=== PATIENT | male | born 1990 | race Caucasian/White ===

== ENCOUNTER 2017-09-04 07:53 | Emergency (ER) | payer BC, MEDICAID ==
[2017-09-04 08:05] VITALS: BP 97/64
--- NOTE | 2017-09-04 08:18 | UC ---
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 hx pituitary tumor panhypopit hx aplastic anemia hx epistaxis hx nasal cautery x 1 - History of Current Complaint Chief Complaint: UCGeneralIllness Stated Complaint: NOSE BLEED Time Seen by Provider: 09/04/17 07:58 Hx Obtained From: Patient Onset/Duration: Sudden Onset, Lasting Minutes - 40 Timing: Constant Severity Initially: Moderate Severity Currently: None Pain Intensity: 0 Pain Scale Used: 0-10 Numeric Character: Light Alleviating Factor(s): Pressure Associated Signs And Symptoms: Positive: Negative - Allergies/Home Medications Allergies/Adverse Reactions: Allergies Allergy/AdvReac Type Severity Reaction Status Date / Time No Known Allergies Allergy Verified 11/20/15 15:25 PMH/Surg Hx/FS Hx/Imm Hx Previously Healthy: Yes - Surgical History Surgical History: Yes Surgery Procedure, Year, and Place: Tonsillectomy as child. Pituitary tumor biopsy. Nasal surgery- deviated septum - Family History Known Family History: Negative: Blood Disorder Family History: R & N/C - Social History Alcohol Use: Rare Substance Use Type: None Smoking Status (MU): Never Smoked Tobacco Review of Systems Constitutional: Negative Skin: Negative Eyes: Negative ENT: Epistaxis Respiratory: Negative Cardiovascular: Negative Gastrointestinal: Negative Genitourinary: Negative Motor: Negative Neurovascular: Negative Musculoskeletal: Negative Neurological: Negative Psychological: Negative Is Patient Immunocompromised?: No All Other Systems Reviewed And Are Negative: Yes Physical Exam Triage Information Reviewed: Yes Appearance: Well-Appearing, No Pain Distress, Well-Nourished Vital Signs: Initial Vital Signs Temp 97.2 F 09/04/17 07:58 Pulse 86 09/04/17 07:58 Resp 18 09/04/17 07:58 BP 97/64 09/04/17 07:58 Pulse Ox 100 09/04/17 07:58 Vital Signs Reviewed: Yes Eyes: Positive: Conjunctiva Clear ENT: Positive: Hearing grossly normal, Pharynx normal, TMs normal, Other - small clot right nostril no active bleeding. Negative: Tonsillar swelling, Tonsillar exudate, Trismus, Muffled voice, Hoarse voice, Dental tenderness, Sinus tenderness, Uvula midline Neck: Positive: Supple, Nontender Respiratory: Positive: Lungs clear, Normal breath sounds, No respiratory distress, No accessory muscle use Cardiovascular: Positive: RRR, No Murmur Musculoskeletal: Positive: ROM Intact, No Edema Neurological Exam: Normal Neurological: Positive: Alert Psychological Exam: Normal Skin Exam: Normal Epistaxis Nasal Course/Dx - Course Course Of Treatment: It was stopped but rebleed during my exam. No obious source noted. stopped after about 10 minutes (after neosynephrine use) - Differential Dx/Diagnosis Provider Diagnoses: epistaxis Discharge - Discharge Plan Condition: Stable Disposition: HOME Patient Education Materials: Nosebleed (ED) Forms: *Work Release Referrals: Lisa Garcia MD [Primary Care Provider] - If Needed Additional Instructions: if this recurs I suggest you contact your ENT
[2017-09-04] MEDS ORDERED: Phenylephrine 1% NASAL* 15 ML BOT BOTH NARES ONE (08:46)
[2017-09-04] MEDS ORDERED: Phenylephrine 1% NASAL* 15 ML BOT ONE (08:47)
== END 2017-09-04 09:32 | disposition home or self-care (01) ==
LOC: UCEAST 07:53
DX: R04.0 Epistaxis (principal)
CPT/HCPCS: 36415; 99212; A9270-GY; G0463

== ENCOUNTER 2019-07-04 21:25 | Emergency (ER) | payer BC ==
--- OUTSIDE RECORDS SUMMARY | 2019-07-04 21:32 | XMS REPORT | Continuity of Care Document ---
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 Anemia Zonia Larsen NP Onset: 09/12/2018 Social History Type Date Description Comments Sex Unknown Tobacco Use Start: Unknown Never Smoked Cigarettes ETOH Use Occasional 0-1 drink per week Recreational Drug Use Never Used Drugs Tobacco Use Start: Unknown Nonsmoker Smoking Status Reviewed: 06/06/19 Nonsmoker Exercise Type/Frequency Exercises rarely Allergies, Adverse Reactions, Alerts Description No Known Drug Allergies Medications Active Medications SIG Qnty Indications Ordering Date Provider Ativan 1-2 by mouth before 10tabs Zonia Chavez 06/06/2019 0.5mg Tablets MRIs as needed for RICHARD Larsen anxiety Hydrocortisone one po q Afternoon 90tabs Branden Stockton 02/20/2019 5mg MD Jayshree Tablets Levothyroxine Sodium one by mouth every 90tabs Branden Stockton 01/29/2019 morning MD Jayshree 175mcg Tablets Ddavp 3 sprays into 10ml Branden Stockton 12/09/2018 0.01% Solution nostril twice daily. MD Jayshree Wellbutrin SR one tab by mouth 90tabs Branden Stockton 12/01/2018 100mg daily MD Jayshree Tablets ER 12HR Sertraline HCL 1 by mouth every day 90tabs F34.1 Branden Stockton 10/22/2018 50mg MD Jayshree Tablets Depo-Testosterone 200 mg intramuscular 2ml E29.1 Lenora Arguello, 10/22/2018 every 14 days M.D. 200mg/ml Solution Hydrocortisone 1 PO qd Unknown 10mg Tablets Ibuprofen 2 every 4 hours as Unknown 200mg Tablets needed History Medications Amoxicillin 1 tablet twice a 14tabs J02.9 Agus Virk, 01/20/2019 - 875mg day for 7 days. M.D. 06/06/2019 Tablets Medications Administered in Office Medication SIG Qnty Indications Ordering Provider Date Injection Subcutaneous Or Branden Martell MD 05/27/2019 Intramuscular Injection Injection Subcutaneous Or Branden Martell MD 05/06/2019 Intramuscular Injection Injection Subcutaneous Or Branden Martell MD 04/22/2019 Intramuscular Injection Injection Subcutaneous Or Branden Martell MD 03/25/2019 Intramuscular Injection Injection Subcutaneous Or Branden Martell MD 03/11/2019 Intramuscular Injection Injection Subcutaneous Or Branden Martell MD 02/25/2019 Intramuscular Injection Injection Subcutaneous Or Ava Reyes, [employer] 02/11/2019 Intramuscular Injection Injection Subcutaneous Or Avanaseem Reyes, [employer] 01/28/2019 Intramuscular Injection Injection Subcutaneous Or Ava Amy, [employer] 01/14/2019 Intramuscular Injection Injection Subcutaneous Or Avanaseem Reyes, [employer] 2018 Intramuscular Injection Injection Subcutaneous Or Avanaseem Reyes, [employer] SAL[employer]ANT 12/17/2018 Intramuscular Injection Injection Subcutaneous Or Ava Reyes, [employer]ANT 12/08/2018 Intramuscular Injection Injection Subcutaneous Or Branden Martell MD 11/19/2018 Intramuscular Injection Injection Subcutaneous Or Branden Martell MD 11/05/2018 Intramuscular Injection Injection Subcutaneous Or Branden Martell MD 10/23/2018 Intramuscular Injection Injection Subcutaneous Or Branden Martell MD 10/08/2018 Intramuscular Injection Injection Subcutaneous Or LORRAINE Abdullahi 09/24/2018 Intramuscular Injection Immunizations CPT Code Status Date Vaccine Lot # [id number] Given 10/13/2018 Tdap Tetanus, W Pertussis [id number] 53688 Given 06/08/1998 (IPV) Inactive Poliovirus Vaccine 69635 Given 06/08/1998 MMR Virus Immunization 54852 Given 06/08/1998 DTaP Immunization 01699 Given 01/13/1997 (IPV) Inactive Poliovirus Vaccine 09806 Given 02/07/1994 Hepatitis B Immunization, -19 Years 01184 Given 02/07/1994 MMR Virus Immunization 56491 Given 02/07/1994 DTaP Immunization 88014 Given 07/19/1993 Hepatitis B Immunization, -19 Years 96675 Given 07/19/1993 DTaP Immunization 53378 Given 05/17/1993 Hepatitis B Immunization, [place]-19 Years 54214 Given 05/17/1993 (IPV) Inactive Poliovirus Vaccine 41563 Given 05/17/1993 DTaP Immunization 57034 Given 03/15/1993 (IPV) Inactive Poliovirus Vaccine 13220 Given 03/15/1993 DTaP Immunization Vital Signs Date Vital Result Comment 06/06/2019 9:29am BP Systolic 102 mmHg BP Diastolic 68 mmHg Heart Rate 68 /min Body Temperature 97.2 F Respiratory Rate 16 /min Weight 193.00 lb 01/20/2019 8:31am BP Systolic 112 mmHg BP Diastolic 74 mmHg Heart Rate 96 /min Body Temperature 97.9 F Height 67.5 inches 5'7.50" Results Test Date Facility Test Result H/L Range Note Comp Metabolic Panel 02/20/2019 [facility] Sodium 136 mmol/L Normal 135-145 Potassium 3.9 mmol/L Normal 3.5-5.0 Chloride 102 mmol/L Normal 101-111 Co2 Carbon Dioxide 26 mmol/L Normal 22-32 Anion Gap 8 mmol/L Normal 2-11 Glucose 101 mg/dL High 70-100 Blood Urea Nitrogen 7 mg/dL Normal 6-24 Creatinine 0.94 mg/dL Normal 0.67-1.17 BUN/Creatinine Ratio 7.4 Low 8-20 Calcium 9.3 mg/dL Normal 8.6-10.3 Total Protein 7.5 g/dL Normal 6.4-8.9 Albumin 4.4 g/dL Normal 3.2-5.2 Globulin 3.1 g/dL Normal 2-4 Albumin/Globulin Ratio 1.4 Normal 1-3 Total Bilirubin 0.90 mg/dL Normal 0.2-1.0 Alkaline Phosphatase 169 U/L High 34-104 Alt 46 U/L Normal 7-52 Ast 69 U/L High 13-39 Egfr Non- 97.0 >60 Egfr 117.4 >60 1 Lipid Profile (Trig/Chol/HDL) 02/20/2019 [facility] Triglycerides 393 mg/dL 2 Cholesterol 253 mg/dL 3 HDL Cholesterol 26.1 mg/dL 4 LDL Cholesterol 148 mg/dL 5 Laboratory test 02/20/2019 [facility] Testosterone Total 1090.80 ng/dL High 240- 950 finding Free T4 (Free Thyroxine) 0.97 ng/dL Normal 0.61-1.12 Prolactin 31.6 ng/mL High 1.0-20.0 Estradiol 89 pg/mL High Less Than 50 6 CBC Auto Diff 02/20/2019 [facility] White Blood Count 5.9 10^3/uL Normal 3.5- 10.8 Red Blood Count 4.33 10^6/uL Normal 4.18-5.48 Hemoglobin 14.3 g/dL Normal 14.0-18.0 Hematocrit 41 % Low 42-52 Mean Corpuscular Volume 95 fL High 80-94 Mean Corpuscular Hemoglobin 33 pg High 27-31 Mean Corpuscular HGB Conc 35 g/dL Normal 31-36 Red Cell Distribution Width 15 % Normal 10.5-15 Platelet Count 86 10^3/uL Low 150-450 Mean Platelet Volume 8.5 fL Normal 7.4-10.4 Abs Neutrophils 3.7 10^3/uL Normal 1.5-7.7 Abs Lymphocytes 1.5 10^3/uL Normal 1.0-4.8 Abs Monocytes 0.4 10^3/uL Normal 0-0.8 Abs Eosinophils 0.1 10^3/uL Normal 0-0.6 Abs Basophils 0.2 10^3/uL Normal 0-0.2 Abs Nucleated RBC 0.0 10^3/uL Granulocyte % 61.8 % Lymphocyte % 25.1 % Monocyte % 7.3 % Eosinophil % 2.0 % Basophil % 3.8 % Nucleated Red Blood Cells % 0.1 Laboratory test finding 02/20/2019 [facility] Osmolality Urine 596 mOsm/kg Normal 100-1150 Hemoglobin A1c (Glyco HGB) 4.8 % Normal 4.0-5.6 7 Growth Hormone 0.02 ng/mL 8 Sex Hormone Binding Globulin 34 nmol/L 10-57 9 Insulin-Like Growth 02/20/2019 [facility] Insulin like Growth 20 ng/mL Abnormal 60-329 Factor 1 Factor I Igf1 Z-score -3.00 SD 10 Comprehensive Metabolic 01/20/2019 [facility](fma) Sodium 135 mEq/L 134-149 Prof Potassium 3.6 mEq/L 3.6-5.5 Chloride 98 mEq/L 94-112 Carbon Dioxide 24 mEq/L 21-32 Glucose 105 mg/dL 70-105 BUN 4 mg/dL Low 6-26 11 Creatinine 1.0 mg/dL 0.6-1.4 BUN/Creat Ratio 4.0 CALC Low 8.0-36.0 Calcium 8.6 mg/dL 8.6-10.2 Total Protein 7.4 g/dL 6.4-8.3 Albumin 4.4 g/dL 3.8-5.5 Globulin 3.0 g/dL 2.0-4.8 A/G Ratio 1.5 CALC 0.6-2.3 Alk. Phosphatase 135 U/L High 22-95 12 Alt (SGPT) 19 U/L 7-35 Ast (Sgot) 48 U/L High 5-34 13 Total Bilirubin 1.3 mg/dL 0.2-1.3 GFR Non- >60 ml/min/1.73m^ >=60 GFR >60 ml/min/1.73m^ >=60 Laboratory test 01/20/2019 [facility](a) TSH 8.35 mIU/L High 0.50- 6.00 finding Free T4 0.27 ng/dL Low 0.75-1.54 Laboratory test 01/20/2019 [facility] Cortisol - Am 1.8 g/dL Low 6.2-19.4 14 finding [address] [place] [address] (607)- - Testosterone, 01/20/2019 [facility] Testosterone, >1500 ng/dL High 264-916 15 Free And Total [address] [facility] [place] [address] (607)- - Free Testosterone(Direct) 34.7 pg/mL High 9.3-26.5 Laboratory test finding 01/20/2019 [facility] Quickstrep neg Negative (607)- - Flu A&B (Fma) 01/06/2019 [facility] Medicine Influenza A negative (607)- - Influenza B negative 1 Because ethnic data is not always readily available, this report includes an eGFR for both -Americans and non- Americans. The National Kidney Disease Education Program (NKDEP) does not endorse the use of the MDRD equation for patients that are not between the ages of 18 and 70, are , have extremes of body size, muscle mass, or nutritional status, or are non- or non-. According to the National Kidney Foundation, irrespective of diagnosis, the stage of the disease is based on the level of kidney function: Stage Description GFR(mL/min/1.73 m(2)) 1 Kidney damage with normal or decreased GFR 90 2 Kidney damage with mild decrease in GFR 60-89 3 Moderate decrease in GFR 30-59 4 Severe decrease in GFR 15-29 5 Kidney failure <15 (or dialysis) 2 Desirable: <150 Borderline High: 150-199 High: 200-499 Very High: >500 3 Desirable: <200 Borderline High: 200-239 High: >239 4 Low: <40 Desirable: 40-60 High: >60 5 Desirable: <100 Near Optimal: 100-129 Borderline High: 130-159 High: 160-189 Very High: >189 6 Estradiols <40 pg/mL are sent to a reference lab for low range testing. 7 Therapeutic target for the treatment of diabetes mellitus patients is <7% HBA1C, and in selective patients <6.0%. Please refer to [place] [employer] diabetic care guidelines for further information. 8 REFERENCE VALUE 0.01 - 0.97 Test Performed by: [facility] [place] [address] 9 Test Performed by: [facility] [place] [address] 10 REFERENCE VALUE -2.0 - +2.0 ADDITIONAL INFORMATION This test was developed and its performance characteristics determined by [facility] in a manner consistent with CLIA requirements. This test has not been cleared or approved by the U.S. Food and Drug Administration. Test Performed by: [facility] [address] [place] [address] 11 RESULTS VERIFIED BY REPEAT ANALYSIS 12 RESULTS VERIFIED BY REPEAT ANALYSIS 13 RESULTS VERIFIED BY REPEAT ANALYSIS 14 1 serum pour off from red top tube 15 Adult male reference interval is based on a population of healthy nonobese males (BMI <30) between 19 and 39 years old. Heather et.al. JCEM 2017,102;8237-9100. PMID: 53588965. Procedures Date Code Description Status 05/27/2019 98049 Injection Subcutaneous Or Intramuscular Completed 05/06/2019 62296 Injection Subcutaneous Or Intramuscular Completed 04/22/2019 28158 Injection Subcutaneous Or Intramuscular Completed 03/25/2019 65609 Injection Subcutaneous Or Intramuscular Completed 03/11/2019 60428 Injection Subcutaneous Or Intramuscular Completed 02/25/2019 77345 Injection Subcutaneous Or Intramuscular Completed 02/11/2019 37451 Injection Subcutaneous Or Intramuscular Completed 01/28/2019 15334 Injection Subcutaneous Or Intramuscular Completed 01/14/2019 70165 Injection Subcutaneous Or Intramuscular Completed 2018 86901 Injection Subcutaneous Or Intramuscular Completed 12/17/2018 58831 Injection Subcutaneous Or Intramuscular Completed 12/08/2018 79482 Injection Subcutaneous Or Intramuscular Completed Medical Devices Description No Information Available Encounters Type Date Location Provider Dx Diagnosis Office Visit 01/20/2019 [facility] Office Elizabeth Garrett, J02.9 Acute pharyngitis, 8:45a PA unspecified Office Visit 01/19/2019 [facility] Office Branden Stockton E23.0 Hypopituitarism 2:00p MD Jayshree Office Visit 01/14/2019 [facility] Office Ava E29.1 Testicular 10:30a LORRAINE Reyes hypofunction Assessments Date Code Description Provider 06/06/2019 F40.240 Claustrophobia Zonia Larsen NP 05/27/2019 E29.1 Testicular hypofunction Branden Martell MD 05/06/2019 E29.1 Testicular hypofunction Branden Martell MD 04/22/2019 E29.1 Testicular hypofunction Branden Martell MD 03/25/2019 E29.1 Testicular hypofunction Branden Martell MD 03/11/2019 E29.1 Testicular hypofunction Branden Martell MD 02/25/2019 E29.1 Testicular hypofunction Branden Martell MD 02/11/2019 E29.1 Testicular hypofunction Ava Reyes, [employer] 01/28/2019 E29.1 Testicular hypofunction Ava Reyes, [employer] 01/20/2019 J02.9 Acute pharyngitis, unspecified [facility] 01/20/2019 E23.0 Hypopituitarism Branden Martell MD 01/19/2019 E23.0 Hypopituitarism Branden Martell MD 01/14/2019 E29.1 Testicular hypofunction Ava Reyes, [facility] 01/06/2019 J06.9 Acute upper respiratory infection, Branden Forman M.D. unspecified 2018 E29.1 Testicular hypofunction Avanaseem Reyes, [facility] 12/17/2018 E29.1 Testicular hypofunction Avanaseem Reyes, [facility] 12/08/2018 E29.1 Testicular hypofunction Ava Reyes, [employer] Plan of Treatment 06/06/2019 - Zonia Larsen, NPF40.240 ClaustrophobiaComments:Ativan PRN pre -procedure have someone drive you to and from the MRIs no drinking alcohol with this medication it is controlled - please place in secure locationAllNew Medication:Ativan 0.5 mg - 1-2 by mouth before MRIs as needed for anxietyComments:Medication Management Patient Understands medications he 's taking? Yes No Are there Barriers to Adherence? Yes No Has the patient been asked about herbal supplements and therapies, andOTC meds? Yes No Care Plan1. Patient has been queried about patient's goals/ preferences and functional/lifestyle goals at relevant visits. If relevant, describe: na2. Treatment goals as explained to the patient: above3. Are there barriers to meeting treatment goals? Yes No If Yes, please describe:4. Self-Management goals as described to the patient: Yes NoAs always, we strongly encourage a healthy diet and making physical activity a part of your every day life. If you have questions about how or where to start, please contact the office. Functional Status Description No Information Available Mental Status Description No Information Available Referrals Refer to Reason for Referral Status Appt Date Brent Ugarte MD consult and treat Scheduled 02/20/2019 [facility] Endocrinology [address] [facility] [address] [facility] [address] [phone]
[2019-07-04 21:37] VITALS: BP 123/75
[2019-07-04] MEDS ORDERED: HYDROcodone/ACETAMIN 5-325 MG* 1 TAB PO ONE ×2 (21:53→21:55)
[2019-07-04] MEDS ORDERED: Amoxicillin/Clavulanate TAB* 875 MG PO ONE ×2 (21:54→21:55)
--- NOTE | 2019-07-04 22:01 | UC ---
UC General HPI - HPI Summary HPI Summary: 28-year-old male comes in with acute onset of left-sided jaw pain. Pain started couple hours ago in the left lateral lower jaw. Is pains been reoccurring on and off for the past month. Usually takes 200 mg of ibuprofen the pain goes away. Tonight the pain is not going away after taking a total of 800 mg of ibuprofen. Pain is a 7 out of 10. He did try some Orajel which he feels did not help and he does not think it's his tooth giving him pain. Denies any ear pain no fevers no chills no complaint of difficulty swallowing. Pain is in the jaw. Denies any chest pain. No complaint of other headache. - History of Current Complaint Chief Complaint: UCGeneralIllness Stated Complaint: JAW PAIN/LANG Time Seen by Provider: 07/04/19 21:43 Pain Intensity: 7 - Allergy/Home Medications Allergies/Adverse Reactions: Allergies Allergy/AdvReac Type Severity Reaction Status Date / Time No Known Allergies Allergy Verified 07/04/19 21:37 Home Medications: Home Medications Desmopressin (Nonrefrigerated) [Desmopressin 10 Mcg/0.1 ml Spr] 10 mcg NS DAILY 07/04/19 [History Confirmed 07/04/19] Hydrocortisone TAB* [Cortef*] 5 mg PO DAILY 07/04/19 [History Confirmed 07/04/19 ] Ibuprofen TAB* [Motrin TAB* 800 MG] 800 mg PO ONCE 07/04/19 [History Confirmed 07/04/19] Levothyroxine TAB* [Synthroid TAB*] 100 mcg PO DAILY 07/04/19 [History Confirmed 07/04/19] Sertraline* [Zoloft*] 50 mg PO DAILY 07/04/19 [History Confirmed 07/04/19] Testosterone Cypionate 100 mg IM MONTHLY 07/04/19 [History Confirmed 07/04/19] buPROPion TAB* [Wellbutrin TAB*] 100 mg PO DAILY 07/04/19 [History Confirmed ] PMH/Surg Hx/FS Hx/Imm Hx Previously Healthy: Yes - BRAIN TUMOR Endocrine History: Hypothyroidism - Surgical History Surgical History: Yes Surgery Procedure, Year, and Place: Tonsillectomy as child. Pituitary tumor biopsy. Nasal surgery- deviated septum - Family History Known Family History: Positive: None, Unknown Negative: Blood Disorder Family History: R & N/C - Social History Alcohol Use: Rare Substance Use Type: None Smoking Status (MU): Never Smoked Tobacco Review of Systems All Other Systems Reviewed And Are Negative: Yes Constitutional: Positive: Negative Skin: Positive: Negative Eyes: Positive: Negative ENT: Positive: Other - SEE HPI Respiratory: Positive: Negative Cardiovascular: Positive: Negative Gastrointestinal: Positive: Negative Motor: Positive: Negative Neurovascular: Positive: Negative Musculoskeletal: Positive: Negative Neurological: Positive: Negative Psychological: Positive: Negative Is Patient Immunocompromised?: No Physical Exam Triage Information Reviewed: Yes Appearance: Well-Appearing, No Pain Distress Vital Signs: Initial Vital Signs Temp 97.3 F 07/04/19 21:33 Pulse 60 07/04/19 21:33 Resp 16 07/04/19 21:33 BP 123/75 07/04/19 21:33 Pulse Ox 100 07/04/19 21:33 Vital Signs Reviewed: Yes Eye Exam: Normal Eyes: Positive: Conjunctiva Clear ENT: Positive: Pharynx normal, TMs normal, Other - No facial rash. Dental: Positive: Other: - Patient does have multiple fillings in his lower molars. No tender to palpation of the molars no gingival swelling. Neck: Positive: Supple, Other: - Patient's tender to palpation just underneath the left mandible in the distribution of the submandibular gland. No TMJ tenderness the ears are normal. Respiratory: Positive: No respiratory distress Musculoskeletal: Positive: Strength Intact, ROM Intact Neurological: Positive: Alert Psychological: Positive: Normal Response To Family Skin Exam: Normal Course/Dx - Course Course Of Treatment: Given the location of the tenderness to palpation most likely cause is a left- sided submandibular gland stone.. Treat with Augmentin and continue the ibuprofen also had Arverne as needed. Patient is seeing Dr. Sanchez in the past and therefore he plans to follow up with him. If he gets worse he needs to get reevaluated sooner. - Diagnoses Provider Diagnosis: Left facial pain Discharge ED - Sign-Out/Discharge Documenting (check all that apply): Patient Departure All imaging exams completed and their final reports reviewed: No Studies - Discharge Plan Condition: Stable Disposition: HOME Prescriptions: Amoxicillin/Clavulanate TAB* [Augmentin TAB 875*] 875 mg PO BID #18 tab HYDROcodone/ACETAMIN 5-325 MG* [Arverne 5-325 TAB*] 1 tab PO Q4H PRN #10 tab MDD 6 PRN Reason: Pain - Moderate Patient Education Materials: Sialoadenitis (ED), Atypical Facial Pain (ED) Referrals: Branden Martell MD [Primary Care Provider] - Additional Instructions: FOLLOW UP WITH ENT, DR SANCHEZ. GET REEVALUATED SOONER IF WORSE OR ANY QUESTIONS OR CONCERNS. - Billing Disposition and Condition Condition: STABLE Disposition: Home
== END 2019-07-04 22:04 | disposition home or self-care (01) ==
LOC: UCCORT 21:25
DX: E03.9 Hypothyroidism, unspecified (principal)
CPT/HCPCS: 99213; A9270-GY; G0463

== ENCOUNTER 2021-12-04 09:48 | Inpatient (IN) ==
[2021-12-04] MEDS ORDERED: Ondansetron 4 mg VIAL 2 MG/ML 2 ml VIAL IV ONE (10:50)
[2021-12-04] MEDS ORDERED: Pantoprazole VIAL 40 MG VIAL IV ONE (10:50)
[2021-12-04 11:01] LABS: Hematocrit 45 % (42-52); Hemoglobin 15.5 g/dL (14.0-18.0); Mean Corpuscular HGB Conc 35 g/dL (31-36); Mean Corpuscular Hemoglobin 33 pg (27-31); Mean Corpuscular Volume 96 fL (80-94); Red Blood Count 4.67 10^6 /uL (4.18-5.48); Red Cell Distribution Width 16 % (10-15); White Blood Count 4.6 10^3/uL (3.5-10.8)
[2021-12-04] MEDS: Lactated Ringers 1000 ml BAG 1,000 ML IV SCH ×3 (11:07→20:02)
[2021-12-04 11:16] LABS: Albumin 3.9 g/dL (3.2-5.2); C Reactive Protein 7.65 mg/L (<8.01); Calcium 9.1 mg/dL (8.6-10.3); Globulin 3.9 g/dL (2-4); Potassium 3.7 mmol/L (3.5-5.0); Total Bilirubin 3.1 mg/dL (0.2-1.0); Total Protein 7.8 g/dL (6.4-8.9); eGFR CKD-EPI 72.7 (>60)
[2021-12-04 11:44] LABS: ABS Eosinophils 0.1 10^3/ul (0-0.6); ABS Lymphocytes 0.5 10^3/ul (1.0-4.8); ABS Monocytes 0.3 10^3/ul (0-0.8); ABS Neutrophils 3.7 10^3/ul (1.5-7.7); Eosinophil % 1.8 %; Lymphocyte % 11.8 %; Nucleated Red Blood Cells % 0.5; Platelet Count 56 10^3/uL (150-450)
[2021-12-04] MEDS ORDERED: methylPREDNISolone 125 mg 2 ML VIAL IV ONE (12:57)
[2021-12-04] MEDS ORDERED: Lactated Ringers 1000 ml BAG 1,000 ML IV ONE (14:44)
[2021-12-04] MEDS ORDERED: Levothyroxine 100 MCG/5 ML VIAL IV SCH (15:00)
[2021-12-04] MEDS ORDERED: Levothyroxine 100 MCG/5 ML VIAL IV ONE (15:00)
[2021-12-04 15:58] LABS: TSH Ultra Thyroid Stim Horm 7.37 mcIU/mL (0.34-5.60)
[2021-12-04 16:00] LABS: Free T4 0.31 ng/dL (0.61-1.12)
[2021-12-04 19:20] LABS: Folate 7.97 ng/mL (5.90-24.80)
[2021-12-04 19:41] LABS: Calcium 7.9 mg/dL (8.6-10.3); Potassium 3.8 mmol/L (3.5-5.0); eGFR CKD-EPI 88.9 (>60)
[2021-12-04 19:48] LABS: ABS Lymphocytes 0.3 10^3/ul (1.0-4.8); ABS Monocytes 0.1 10^3/ul (0-0.8); ABS Neutrophils 2.1 10^3/ul (1.5-7.7); Eosinophil % 0.6 %; Hematocrit 34 % (42-52); Hemoglobin 12.1 g/dL (14.0-18.0); Lymphocyte % 13.3 %; Mean Corpuscular HGB Conc 36 g/dL (31-36); Mean Corpuscular Hemoglobin 34 pg (27-31); Mean Corpuscular Volume 97 fL (80-94); Mean Platelet Volume 9.3 fL (7.4-10.4); Platelet Count 33 10^3/uL (150-450); Red Blood Count 3.52 10^6 /uL (4.18-5.48); Red Cell Distribution Width 16 % (10-15); White Blood Count 2.5 10^3/uL (3.5-10.8)
[2021-12-04] MEDS ORDERED: [UNRECOGNIZED DRUG - REMARK] INTRANASAL SCH (21:00)
[2021-12-04 23:08] LABS: Urine Appearance Clear; Urine Bilirubin Negative (Negative); Urine Blood Negative (Negative); Urine Color Amber; Urine Glucose Negative (Negative); Urine Ketones Negative (Negative); Urine Nitrite Negative (Negative); Urine Protein 1+(30 mg/dL) (Negative); Urine Urobilinogen Negative (Negative)
[2021-12-04 23:10] LABS: Urine Bacteria Absent (Absent); Urine Red Blood Cell Absent (Absent); Urine Squamous Epithelial Cell Present (Absent); Urine White Blood Cell Trace(0-5/hpf) (Absent)
[2021-12-05] MEDS: methylPREDNISolone SOD 40 mg/ml 1 ml VIAL IV SCH ×3 (00:25→16:17)
[2021-12-05 05:45] LABS: ABS Lymphocytes 0.4 10^3/ul (1.0-4.8); ABS Monocytes 0.1 10^3/ul (0-0.8); ABS Neutrophils 2.2 10^3/ul (1.5-7.7); Eosinophil % 0.1 %; Hematocrit 32 % (42-52); Hemoglobin 11.4 g/dL (14.0-18.0); Lymphocyte % 15.3 %; Mean Corpuscular HGB Conc 35 g/dL (31-36); Mean Corpuscular Hemoglobin 34 pg (27-31); Mean Corpuscular Volume 97 fL (80-94); Mean Platelet Volume 8.9 fL (7.4-10.4); Platelet Count 34 10^3/uL (150-450); Red Blood Count 3.32 10^6 /uL (4.18-5.48); Red Cell Distribution Width 16 % (10-15); White Blood Count 2.7 10^3/uL (3.5-10.8)
[2021-12-05] MEDS ORDERED: Levothyroxine 100 MCG/5 ML VIAL IV SCH (06:00)
[2021-12-05 06:01] LABS: Potassium 3.6 mmol/L (3.5-5.0); eGFR CKD-EPI 106.4 (>60)
[2021-12-05 06:39] LABS: Free T4 0.41 ng/dL (0.61-1.12)
[2021-12-05 07:55] LABS: Albumin 2.9 g/dL (3.2-5.2); Direct Bilirubin 0.5 mg/dL (0.03-0.18); Globulin 2.8 g/dL (2-4); Indirect Bilirubin 1.9 mg/dL (0.3-1.0); Total Bilirubin 2.4 mg/dL (0.2-1.0); Total Protein 5.7 g/dL (6.4-8.9)
[2021-12-05] MEDS: [UNRECOGNIZED DRUG - REMARK] INTRANASAL SCH ×2 (08:15→19:55)
[2021-12-05] MEDS: Lactated Ringers 1000 ml BAG 1,000 ML IV SCH (08:47)
[2021-12-05 12:06] LABS: Corrected Retic Count 1.5 % (0.5-1.5); Hematocrit for Retic CNT 33 % (42-52); Immature Retic Fraction 0.53; RBC Retic Count 3.36 10^6/uL (4.18-5.48)
[2021-12-06] MEDS: methylPREDNISolone SOD 40 mg/ml 1 ml VIAL IV SCH ×2 (01:02→08:12)
[2021-12-06 04:59] LABS: ABS Lymphocytes 0.6 10^3/ul (1.0-4.8); ABS Monocytes 0.2 10^3/ul (0-0.8); ABS Neutrophils 3.6 10^3/ul (1.5-7.7); Hematocrit 31 % (42-52); Hemoglobin 10.9 g/dL (14.0-18.0); Lymphocyte % 13.8 %; Mean Corpuscular HGB Conc 35 g/dL (31-36); Mean Corpuscular Hemoglobin 34 pg (27-31); Mean Corpuscular Volume 97 fL (80-94); Mean Platelet Volume 8.5 fL (7.4-10.4); Platelet Count 39 10^3/uL (150-450); Red Blood Count 3.22 10^6 /uL (4.18-5.48); Red Cell Distribution Width 16 % (10-15); White Blood Count 4.3 10^3/uL (3.5-10.8)
[2021-12-06 05:15] LABS: Albumin/Globulin Ratio 1.1 (1-3); Calcium 8.1 mg/dL (8.6-10.3); Globulin 2.8 g/dL (2-4); Potassium 3.4 mmol/L (3.5-5.0); Total Bilirubin 1.5 mg/dL (0.2-1.0); Total Protein 5.8 g/dL (6.4-8.9); eGFR CKD-EPI 110.4 (>60)
[2021-12-06] MEDS ORDERED: Levothyroxine 100 MCG/5 ML VIAL IV SCH (06:00)
[2021-12-06] MEDS ORDERED: KCL 10 MEQ/50 ML IVPREMIX 10 MEQ/50 ML BAG IV ONE (07:09)
[2021-12-06] MEDS ORDERED: KCL 20 MEQ/100 ML IVPREMIX 20 MEQ/100 ML BAG IV SCH (08:00)
[2021-12-06 08:07] LABS: Magnesium 1.8 mg/dL (1.9-2.7)
[2021-12-06] MEDS: [UNRECOGNIZED DRUG - REMARK] INTRANASAL SCH ×2 (08:12→21:19)
[2021-12-06 08:25] LABS: Ferritin 174.8 ng/mL (24-336)
[2021-12-06] MEDS ORDERED: Potassium Chlor 20 meq TAB.ER PO ONE (08:46)
[2021-12-06 09:29] LABS: Free T4 0.46 ng/dL (0.61-1.12)
[2021-12-06] MEDS ORDERED: Iohexol 350 (CONTRAST) 500 ML MDV IV ONE (14:49)
[2021-12-07 05:57] LABS: ABS Lymphocytes 0.6 10^3/ul (1.0-4.8); ABS Monocytes 0.2 10^3/ul (0-0.8); ABS Neutrophils 2.4 10^3/ul (1.5-7.7); Hematocrit 31 % (42-52); Hemoglobin 10.7 g/dL (14.0-18.0); Lymphocyte % 18.4 %; Mean Corpuscular HGB Conc 35 g/dL (31-36); Mean Corpuscular Hemoglobin 34 pg (27-31); Mean Corpuscular Volume 97 fL (80-94); Mean Platelet Volume 8.3 fL (7.4-10.4); Platelet Count 39 10^3/uL (150-450); Red Blood Count 3.18 10^6 /uL (4.18-5.48); Red Cell Distribution Width 16 % (10-15); White Blood Count 3.2 10^3/uL (3.5-10.8)
[2021-12-07 06:07] LABS: Albumin 2.9 g/dL (3.2-5.2); Albumin/Globulin Ratio 1.1 (1-3); Calcium 8.1 mg/dL (8.6-10.3); Globulin 2.7 g/dL (2-4); Potassium 3.9 mmol/L (3.5-5.0); Total Bilirubin 1.2 mg/dL (0.2-1.0); Total Protein 5.6 g/dL (6.4-8.9); eGFR CKD-EPI 121.8 (>60)
[2021-12-07] MEDS: [UNRECOGNIZED DRUG - REMARK] INTRANASAL SCH (10:10)
[2021-12-07 11:40] VITALS: BP 100/62
== END 2021-12-07 15:00 | disposition home or self-care (01) | DRG 424 ==
LOC: ED 09:48 → EDHOLD 15:14 → SUATTDRO 15:14 → ICU 20:01 → MED 12-06 17:03
PROVIDERS: ADMIT Internal Medicine; ATTEND Internal Medicine

== ENCOUNTER 2023-09-12 02:19 | Inpatient (IN) ==
[2023-09-12] MEDS ORDERED: Lactated Ringers 1000 ml BAG 1,000 ML IV ONE ×3 (02:38→06:25)
[2023-09-12] MEDS ORDERED: Ondansetron 4 mg VIAL 2 MG/ML 2 ml VIAL IV ONE (02:49)
[2023-09-12 02:55] LABS: INR 1.64 (0.83-1.13)
[2023-09-12 03:09] LABS: Albumin 3.2 g/dL (3.2-5.2); Albumin/Globulin Ratio 1.1 (1-3); C Reactive Protein 13.4 mg/L (<8.01); Calcium 7.9 mg/dL (8.6-10.3); Creatinine, Serum 1.04 mg/dL (0.67-1.17); Globulin 2.8 g/dL (2-4); Potassium 3.6 mmol/L (3.5-5.0); Total Bilirubin 2.3 mg/dL (0.2-1.0); eGFR CKD-EPI 99.1 (>60)
[2023-09-12 03:10] LABS: Hematocrit 31.1 % (38-53); Hemoglobin 10.8 g/dL (13.2-16.3); Mean Corpuscular Hemoglobin 32.6 pg (27-33); Mean Corpuscular Hgb Conc 34.9 g/dL (31-36); Mean Corpuscular Volume 93.2 fL (80-97); Red Blood Count 3.33 10^6/uL (4.06-5.63); Red Cell Distribution Width 18.4 % (12-17); White Blood Count 11.3 10^3/uL (3.6-10.2)
[2023-09-12] MEDS ORDERED: Pantoprazole VIAL 40 MG VIAL IV ONE (03:25)
[2023-09-12] MEDS ORDERED: Iohexol 350 (CONTRAST) 500 ML MDV IV ONE (03:27)
[2023-09-12 03:47] LABS: ABS Basophils 0.1 10^3/uL (0.0-0.1); ABS Eosinophils 0.5 10^3/uL (0.0-0.5); ABS Lymphocytes 3.5 10^3/uL (1.0-4.8); ABS Monocytes 0.6 10^3/uL (0.0-1.1); ABS Neutrophils 6.6 10^3/uL (1.5-7.6); ABS Nucleated RBC 0.03 10^3/ul; Eosinophil % 4.4 %; Lymphocyte % 30.8 %; Mean Platelet Volume 8.8 fL (7.5-11.2); Nucleated Red Blood Cells % 0.2 %/100WBC (0.0-0.8); Platelet Count 90 10^3/uL (150-450)
[2023-09-12 05:33] LABS: Hematocrit 25.4 % (38-53); Hemoglobin 8.9 g/dL (13.2-16.3); Mean Corpuscular Hemoglobin 32.8 pg (27-33); Mean Corpuscular Hgb Conc 35.1 g/dL (31-36); Mean Corpuscular Volume 93.7 fL (80-97); Red Blood Count 2.71 10^6/uL (4.06-5.63); Red Cell Distribution Width 18.1 % (12-17)
[2023-09-12 05:39] LABS: Calcium 7.3 mg/dL (8.6-10.3); Creatinine, Serum 0.95 mg/dL (0.67-1.17); Magnesium 1.7 mg/dL (1.9-2.7); Potassium 3.8 mmol/L (3.5-5.0); eGFR CKD-EPI 110.4 (>60)
[2023-09-12 05:40] LABS: % Iron Saturation 73 % (15-55); .Transferrin 194 mg/dL (203-362); Iron 198 ug/dL (50-212); Total Iron Binding Capacity 272 mcg/dL (250-450); Unsaturated Iron Binding 74 ug/dL
[2023-09-12] MEDS ORDERED: Magnesium Sulfate 2 gm BAG 2 GM/50 ML BAG IVPB ONE (05:42)
[2023-09-12 05:45] LABS: Direct Bilirubin 0.3 mg/dL (0.03-0.18)
[2023-09-12 05:45] LABS: High Sensitivity Troponin 1 Hr < 3 pg/mL (<20)
[2023-09-12 06:02] LABS: Ferritin 53.5 ng/mL (24-336)
[2023-09-12 06:06] LABS: Folate > 20.00 ng/mL (5.90-24.80); Vitamin B12 545 pg/mL (180-914)
[2023-09-12] MEDS ORDERED: Octreotide Acetate 50 MCG in NS 0.9% 50 ML 50 ML IV ONE (06:22)
[2023-09-12 06:25] LABS: Urine Appearance Clear; Urine Bilirubin Negative (Negative); Urine Blood Negative (Negative); Urine Color Yellow; Urine Glucose Negative (Negative); Urine Ketones Negative (Negative); Urine Nitrite Negative (Negative); Urine Protein Negative (Negative); Urine Urobilinogen Negative (Negative)
[2023-09-12 06:33] LABS: Urine Specific Gravity > 1.060 (1.002-1.030)
[2023-09-12] MEDS ORDERED: Octreotide Acetate 500 MCG in NS 0.9% 100 ml BAG 100 ML IV SCH (07:00)
[2023-09-12] MEDS ORDERED: Lactated Ringers 1000 ml BAG 1,000 ML IV SCH (07:00)
[2023-09-12] MEDS ORDERED: Hydrocortisone INJ 100 MG/2ML 2 ML VIAL IV ONE (07:14)
[2023-09-12 07:20] LABS: ABS Basophils 0.1 10^3/uL (0.0-0.1); ABS Eosinophils 0.2 10^3/uL (0.0-0.5); ABS Lymphocytes 1.5 10^3/uL (1.0-4.8); ABS Monocytes 0.4 10^3/uL (0.0-1.1); ABS Neutrophils 3.8 10^3/uL (1.5-7.6); ABS Nucleated RBC 0.02 10^3/ul; Eosinophil % 3.9 %; Lymphocyte % 24.9 %; Mean Platelet Volume 9.1 fL (7.5-11.2); Nucleated Red Blood Cells % 0.3 %/100WBC (0.0-0.8); Platelet Count 53 10^3/uL (150-450)
[2023-09-12] MEDS ORDERED: SOMATROPIN SUBCUT SCH (09:00)
[2023-09-12] MEDS: Pantoprazole VIAL 40 MG VIAL IV SCH ×2 (10:22→20:09)
[2023-09-12] MEDS ORDERED: Midazolam 2 mg/2 ml VIAL 1 mg/ml 2 ml VIAL (2 mg) ONE ×3 (11:42→14:17)
[2023-09-12] MEDS ORDERED: fentaNYL 100 mcg/2 ml 50 MCG/ML VIAL ONE (11:42)
[2023-09-12] MEDS ORDERED: Propofol 10 MG/ML 20 ML BTL ONE ×2 (11:45→12:35)
[2023-09-12] MEDS ORDERED: Lidocaine 2% PF 5 ML VIAL ONE (11:45)
[2023-09-12] MEDS ORDERED: Testosterone Cypionate (NF) 200 MG/ML VIAL IM SCH (12:00)
[2023-09-12] MEDS ORDERED: Phenylephrine 40 mcg/mL 10mL (400mcg) SYRINGE ONE (12:13)
[2023-09-12] MEDS ORDERED: Calcium CHLORIDE 10% SYRINGE 1 GM/10 ML ONE (12:35)
[2023-09-12] MEDS ORDERED: Rocuronium 50 mg VIAL 10 mg/ml 5 ml VIAL (50 mg) ONE ×2 (12:36→13:12)
[2023-09-12] MEDS ORDERED: Succinylcholine 200 mg VIAL 20 mg/ml 10 ml VIAL (200 mg) ONE (12:37)
[2023-09-12] MEDS ORDERED: Propofol 10 mg/ml 100 ML BTL 0 MG/0 ML BTL ONE (13:53)
[2023-09-12] MEDS ORDERED: Norepinephrine 4 MG/250mL D5W 4,000 MCG/250 ML BAG IV ONE (13:59)
[2023-09-12] MEDS ORDERED: Midazolam 2 mg/2 ml VIAL 1 mg/ml 2 ml VIAL (2 mg) IV SLOW PU ONE (14:13)
[2023-09-12] MEDS ORDERED: Midazolam PREMIXBAG 1 MG/ML NS 100 ML IV SCH (14:15)
[2023-09-12] MEDS ORDERED: fentaNYL INFUSION 50 mcg/mL VL 2,500 MCG/50 ML VIAL IV SCH (15:00)
[2023-09-12 16:23] LABS: Resp Rate 20
[2023-09-12 16:26] LABS: PCO2 Arterial 35 mmHg (35-45); PO2 Arterial 247 mmHg (80-100)
[2023-09-12] MEDS: DESMOPRESSIN 0.01% ALT NARE SCH ×2 (16:37→23:02)
[2023-09-12 16:54] LABS: Hematocrit 32.2 % (38-53); Hemoglobin 11.1 g/dL (13.2-16.3); Mean Corpuscular Hemoglobin 31.8 pg (27-33); Mean Corpuscular Hgb Conc 34.5 g/dL (31-36); Mean Corpuscular Volume 92.3 fL (80-97); Mean Platelet Volume 8.8 fL (7.5-11.2); Platelet Count 54 10^3/uL (150-450); Red Blood Count 3.49 10^6/uL (4.06-5.63); White Blood Count 4.7 10^3/uL (3.6-10.2)
[2023-09-12 16:55] LABS: ABS Lymphocytes 0.6 10^3/uL (1.0-4.8); ABS Monocytes 0.3 10^3/uL (0.0-1.1); ABS Neutrophils 3.8 10^3/uL (1.5-7.6); ABS Nucleated RBC 0.01 10^3/ul; Eosinophil % 0.4 %; Lymphocyte % 12.1 %; Nucleated Red Blood Cells % 0.2 %/100WBC (0.0-0.8)
[2023-09-12] MEDS: Hydrocortisone INJ 100 MG/2ML 2 ML VIAL IV SCH (20:09)
[2023-09-12] MEDS: Octreotide Acetate 500 MCG in NS 0.9% 100 ml BAG 100 ML IV SCH (20:55)
[2023-09-12 21:23] LABS: Venous Bicarbonate HCO3 19.6 mmol/L (24-28)
[2023-09-12 21:27] LABS: Hematocrit 29.7 % (38-53); Hemoglobin 10.3 g/dL (13.2-16.3); Mean Corpuscular Hgb Conc 34.8 g/dL (31-36); Mean Corpuscular Volume 91.8 fL (80-97); Mean Platelet Volume 8.8 fL (7.5-11.2); Platelet Count 38 10^3/uL (150-450); Red Blood Count 3.23 10^6/uL (4.06-5.63); Red Cell Distribution Width 15.9 % (12-17); White Blood Count 6.6 10^3/uL (3.6-10.2)
[2023-09-13] MEDS ORDERED: cefTRIAXone 1 gm/50 mL D5W 1 GM/50 ML BAG IV ONE (03:21)
[2023-09-13 03:54] LABS: INR 1.51 (0.83-1.13)
[2023-09-13] MEDS: DESMOPRESSIN 0.01% ALT NARE SCH ×2 (03:54→07:27)
[2023-09-13 04:01] LABS: ABS Lymphocytes 0.6 10^3/uL (1.0-4.8); ABS Monocytes 0.4 10^3/uL (0.0-1.1); ABS Neutrophils 7.3 10^3/uL (1.5-7.6); ABS Nucleated RBC 0.01 10^3/ul; Eosinophil % 0.1 %; Hemoglobin 9.5 g/dL (13.2-16.3); Lymphocyte % 7.5 %; Mean Corpuscular Hemoglobin 32.4 pg (27-33); Mean Corpuscular Hgb Conc 35.2 g/dL (31-36); Mean Corpuscular Volume 91.9 fL (80-97); Mean Platelet Volume 8.6 fL (7.5-11.2); Nucleated Red Blood Cells % 0.2 %/100WBC (0.0-0.8); Platelet Count 36 10^3/uL (150-450); Red Blood Count 2.94 10^6/uL (4.06-5.63); White Blood Count 8.3 10^3/uL (3.6-10.2)
[2023-09-13 04:12] LABS: Albumin 2.8 g/dL (3.2-5.2); Albumin/Globulin Ratio 1.3 (1-3); Calcium 7.7 mg/dL (8.6-10.3); Creatinine, Serum 1.12 mg/dL (0.67-1.17); Globulin 2.1 g/dL (2-4); Potassium 4.2 mmol/L (3.5-5.0); Total Bilirubin 2.4 mg/dL (0.2-1.0); Total Protein 4.9 g/dL (6.4-8.9); eGFR CKD-EPI 90.6 (>60)
[2023-09-13] MEDS: Hydrocortisone INJ 100 MG/2ML 2 ML VIAL IV SCH ×2 (04:23→07:26)
[2023-09-13] MEDS ORDERED: Levothyroxine 100 MCG/5 ML VIAL IV SCH (06:00)
[2023-09-13] MEDS: Octreotide Acetate 500 MCG in NS 0.9% 100 ml BAG 100 ML IV SCH (06:37)
[2023-09-13 07:53] VITALS: BP 84/46
[2023-09-13] MEDS ORDERED: Influenza vaccine *QUAD* *2023-24* 0.5 ML SYRINGE IM ONE (09:00)
[2023-09-13] MEDS: Pantoprazole VIAL 40 MG VIAL IV SCH (09:25)
== END 2023-09-13 10:25 | disposition short-term general hospital (02) | DRG 242 ==
LOC: EDHOLD 02:19 → ED 02:19 → SUATTDRO 03:59 → ICU 09:14
PROVIDERS: ADMIT Student in an Organized Health Care Education/Training Program; ATTEND Student in an Organized Health Care Education/Training Program
PROC: O.GIEGD (2023-09-12 12:05)

== ENCOUNTER 2024-10-12 06:33 | Inpatient (IN) ==
[2024-10-12] MEDS: Pantoprazole VIAL 40 MG VIAL IV ONE ×2 (07:22→07:47)
[2024-10-12] MEDS: Lactated Ringers 1000 ml BAG 1,000 ML IV ONE ×2 (07:38→15:12)
[2024-10-12 07:45] LABS: Hematocrit 31.3 % (38-53); Hemoglobin 10.5 g/dL (13.2-16.3); Mean Corpuscular Hemoglobin 27.2 pg (27-33); Mean Corpuscular Hgb Conc 33.4 g/dL (31-36); Mean Corpuscular Volume 81.2 fL (80-97); Red Blood Count 3.86 10^6/uL (4.06-5.63); White Blood Count 7.7 10^3/uL (3.6-10.2)
[2024-10-12 08:08] LABS: Activated Partial Thrombo Time 33.3 seconds (26.0-38.0); INR 1.83 (0.85-1.14)
[2024-10-12 08:12] LABS: Calcium 8.3 mg/dL (8.6-10.3); Creatinine, Serum 0.84 mg/dL (0.67-1.17); Globulin 3.1 g/dL (2-4); Potassium 3.6 mmol/L (3.5-5.0); Total Protein 6.1 g/dL (6.4-8.9); eGFR CKD-EPI 119.6 (>60)
[2024-10-12] MEDS: Iohexol 350 (CONTRAST) 500 ML MDV IV ONE (08:38)
[2024-10-12 08:50] LABS: ABS Eosinophils 0.2 10^3/uL (0.0-0.5); ABS Lymphocytes 0.6 10^3/uL (1.0-4.8); ABS Neutrophils 5.9 10^3/uL (1.5-7.6); ABS Nucleated RBC 0.02 10^3/ul; Eosinophil % 2.6 %; Lymphocyte % 7.5 %; Mean Platelet Volume 9.3 fL (7.5-11.2); Nucleated Red Blood Cells % 0.2 %/100WBC (0.0-0.8); Platelet Count 67 10^3/uL (150-450)
[2024-10-12] MEDS ORDERED: Octreotide Acetate 50 MCG/ML ML IV SLOW PU ONE (09:07)
[2024-10-12] MEDS: Octreotide Acetate 50 MCG in NS 0.9% IV ONE (10:11)
[2024-10-12] MEDS: Pantoprazole 80 mg in NS BAG 80 MG/250 ML BAG IV ONE (10:17)
[2024-10-12 11:42] LABS: Hematocrit 26.6 % (38-53); Hemoglobin 8.8 g/dL (13.2-16.3); Mean Corpuscular Hemoglobin 27.1 pg (27-33); Mean Corpuscular Hgb Conc 33.2 g/dL (31-36); Mean Corpuscular Volume 81.6 fL (80-97); Platelet Count 39 10^3/uL (150-450); Red Blood Count 3.26 10^6/uL (4.06-5.63); White Blood Count 3.7 10^3/uL (3.6-10.2)
[2024-10-12] MEDS: Levothyroxine 100 MCG/5 ML VIAL IV ONE (13:25)
[2024-10-12] MEDS: Octreotide Acetate 500 MCG in NS 0.9% 100 ml BAG 100 ML IV SCH (13:25)
[2024-10-12] MEDS: Phenylephrine 40 mcg/mL 10mL (400mcg) SYRINGE ONE (15:56)
[2024-10-12] MEDS: Ondansetron 4 mg VIAL 2 MG/ML 2 ml VIAL IV ONE (16:00)
[2024-10-12] MEDS ORDERED: Etomidate 40 mg/20 ml (2 MG/ML) 20 ml VIAL (40 mg) ONE (16:17)
[2024-10-12] MEDS ORDERED: Rocuronium 50 mg VIAL 10 mg/ml 5 ml VIAL (50 mg) ONE (16:17)
[2024-10-12] MEDS ORDERED: Midazolam 10 mg/10 ml VIAL 1 mg/ml 10 ml VIAL (10 mg) ONE (16:17)
[2024-10-12 16:26] LABS: ABS Basophils 0.1 10^3/uL (0.0-0.1); ABS Eosinophils 0.2 10^3/uL (0.0-0.5); ABS Lymphocytes 1.8 10^3/uL (1.0-4.8); ABS Monocytes 1.2 10^3/uL (0.0-1.1); ABS Neutrophils 5.9 10^3/uL (1.5-7.6); ABS Nucleated RBC 0.02 10^3/ul; Eosinophil % 2.7 %; Hematocrit 22.5 % (38-53); Hemoglobin 7.2 g/dL (13.2-16.3); Lymphocyte % 19.2 %; Mean Corpuscular Hemoglobin 26.8 pg (27-33); Mean Corpuscular Hgb Conc 32.2 g/dL (31-36); Mean Corpuscular Volume 83.2 fL (80-97); Mean Platelet Volume 9.1 fL (7.5-11.2); Nucleated Red Blood Cells % 0.2 %/100WBC (0.0-0.8); Platelet Count 80 10^3/uL (150-450); Red Cell Distribution Width 17.3 % (12-17); White Blood Count 9.3 10^3/uL (3.6-10.2)
[2024-10-12 16:34] LABS: INR 2.07 (0.85-1.14)
[2024-10-12 17:27] LABS: Albumin 2.6 g/dL (3.5-5.7); Calcium 7.7 mg/dL (8.6-10.3); Creatinine, Serum 0.92 mg/dL (0.67-1.17); Globulin 2.5 g/dL (2-4); Total Bilirubin 2.1 mg/dL (0.2-1.0); Total Protein 5.1 g/dL (6.4-8.9); eGFR CKD-EPI 114.1 (>60)
[2024-10-12] MEDS: methylPREDNISolone SOD SUCC 40 mg/ml 1 ml VIAL IV SCH (17:28)
[2024-10-12] MEDS ORDERED: fentaNYL 100 mcg/2 ml 50 MCG/ML VIAL IV SLOW PU PRN (17:41)
[2024-10-12] MEDS: fentaNYL 100 mcg/2 ml 50 MCG/ML VIAL ONE (17:45)
[2024-10-12] MEDS: Midazolam 2 mg/2 ml VIAL 1 mg/ml 2 ml VIAL (2 mg) ONE (17:51)
[2024-10-12] MEDS ORDERED: Chlorhexidine MOUTHWASH 0.12% 15 ML UDC TOPICAL SCH (18:00)
[2024-10-12] MEDS: Ondansetron 4 mg VIAL 2 MG/ML 2 ml VIAL ONE (18:06)
[2024-10-12] MEDS: Midazolam PREMIXBAG 1 MG/ML NS 100 ML IV ONE (18:18)
[2024-10-12] MEDS: Propofol 10 mg/ml 100 ML BTL 1,000 MG/100 ML BTL ONE (18:18)
[2024-10-12] MEDS: Rocuronium 50 mg VIAL 10 mg/ml 5 ml VIAL (50 mg) ONE ×2 (18:18→18:19)
[2024-10-12] MEDS: Chlorhexidine MOUTHWASH 0.12% 15 ML UDC TOPICAL SCH (18:19)
[2024-10-12] MEDS: Norepinephrine 4 MG/250mL D5W 4,000 MCG/250 ML BAG IV ONE (18:19)
[2024-10-12] MEDS: cefTRIAXone 1 gm/50 mL D5W 1 GM/50 ML BAG IV SCH (18:35)
[2024-10-12] MEDS: Phenylephrine IV 50 MG in NS 0.9% 250 ml 245 ML IV SCH (18:41)
[2024-10-12] MEDS: Propofol 10 mg/ml 100 ML BTL 1,000 MG/100 ML BTL IV SCH (18:42)
[2024-10-12] MEDS: Midazolam PREMIXBAG 1 MG/ML NS 100 ML IV SCH (18:43)
[2024-10-12] MEDS ORDERED: Vasopressin 100 UNITS in D5W 250 ml BAG 245 ML IV SCH (19:15)
[2024-10-12] MEDS: VASOPRESSIN IV ONE (19:50)
[2024-10-12 19:58] LABS: INR 1.71 (0.85-1.14)
[2024-10-12] MEDS: VASOPRESSIN IVPREMIX BTL 40 UNIT/100 ML BTL IV SCH (20:01)
[2024-10-12] MEDS: Hydrocortisone INJ 250 MG VIAL IV ONE (20:13)
[2024-10-12] MEDS: VASOPRESSIN IVPREMIX BTL 40 UNIT/100 ML BTL IV ONE (20:13)
[2024-10-12 20:15] LABS: Resp Rate 18
[2024-10-12 20:16] LABS: PCO2 Arterial 42 mmHg (35-45); PO2 Arterial 98 mmHg (80-100)
[2024-10-12 20:26] LABS: Albumin 2.8 g/dL (3.5-5.7); Albumin/Globulin Ratio 1.2 (1-3); Calcium 7.6 mg/dL (8.6-10.3); Creatinine, Serum 0.92 mg/dL (0.67-1.17); Globulin 2.3 g/dL (2-4); Potassium 4.2 mmol/L (3.5-5.0); Total Protein 5.1 g/dL (6.4-8.9); eGFR CKD-EPI 114.1 (>60)
[2024-10-12 20:33] LABS: Magnesium 1.5 mg/dL (1.9-2.7); Phosphorus 2.7 mg/dL (2.5-5.0)
[2024-10-12 21:15] LABS: ABS Basophils 0.1 10^3/uL (0.0-0.1); ABS Eosinophils 0.3 10^3/uL (0.0-0.5); ABS Lymphocytes 0.9 10^3/uL (1.0-4.8); ABS Monocytes 1.8 10^3/uL (0.0-1.1); ABS Nucleated RBC 0.03 10^3/ul; Anisocytosis 1+; Hematocrit 32.9 % (38-53); Hemoglobin 11.3 g/dL (13.2-16.3); Lymphocyte % 10.1 %; Mean Corpuscular Hgb Conc 34.4 g/dL (31-36); Mean Corpuscular Volume 84.4 fL (80-97); Mean Platelet Volume 8.8 fL (7.5-11.2); Nucleated Red Blood Cells % 0.3 %/100WBC (0.0-0.8); Platelet Count 67 10^3/uL (150-450); Polychromasia 1+; Red Cell Distribution Width 16.2 % (12-17); Tear Drop Cells 1+
[2024-10-12] MEDS ORDERED: Dextrose 50% Syringe 50 ml 25 GM/50 ML SYRINGE IV PUSH PRN (21:26)
[2024-10-12] MEDS: DESMOPRESSIN 0.01% ALT NARE SCH (22:55)
[2024-10-12 23:10] LABS: ABS Basophils 0.1 10^3/uL (0.0-0.1); ABS Eosinophils 0.1 10^3/uL (0.0-0.5); ABS Lymphocytes 0.6 10^3/uL (1.0-4.8); ABS Monocytes 0.6 10^3/uL (0.0-1.1); ABS Nucleated RBC 0.03 10^3/ul; Hematocrit 30.6 % (38-53); Hemoglobin 10.7 g/dL (13.2-16.3); Lymphocyte % 8.7 %; Mean Corpuscular Hemoglobin 29.3 pg (27-33); Mean Corpuscular Hgb Conc 34.9 g/dL (31-36); Mean Corpuscular Volume 83.9 fL (80-97); Mean Platelet Volume 8.9 fL (7.5-11.2); Nucleated Red Blood Cells % 0.5 %/100WBC (0.0-0.8); Platelet Count 47 10^3/uL (150-450); Red Blood Count 3.65 10^6/uL (4.06-5.63); Red Cell Distribution Width 16.3 % (12-17); White Blood Count 6.3 10^3/uL (3.6-10.2)
[2024-10-12] MEDS: Vasopressin 100 UNITS in D5W 250 ml BAG 245 ML IV SCH (23:27)
[2024-10-12] MEDS: Testosterone Cypionate (NF) 200 MG/ML VIAL IM SCH (23:34)
[2024-10-13] MEDS: Magnesium Sulf 4 GM/100 ML IV 4,000 MG/100 ML BAG IVPB ONE (00:55)
[2024-10-13 01:44] LABS: ABS Basophils 0.1 10^3/uL (0.0-0.1); ABS Eosinophils 0.1 10^3/uL (0.0-0.5); ABS Lymphocytes 0.7 10^3/uL (1.0-4.8); ABS Monocytes 0.7 10^3/uL (0.0-1.1); ABS Neutrophils 9.3 10^3/uL (1.5-7.6); ABS Nucleated RBC 0.01 10^3/ul; Eosinophil % 0.5 %; Hematocrit 33.4 % (38-53); Hemoglobin 11.6 g/dL (13.2-16.3); Lymphocyte % 6.1 %; Mean Corpuscular Hemoglobin 29.4 pg (27-33); Mean Corpuscular Hgb Conc 34.7 g/dL (31-36); Mean Corpuscular Volume 84.7 fL (80-97); Mean Platelet Volume 9.1 fL (7.5-11.2); Nucleated Red Blood Cells % 0.1 %/100WBC (0.0-0.8); Platelet Count 56 10^3/uL (150-450); Red Blood Count 3.94 10^6/uL (4.06-5.63); Red Cell Distribution Width 15.9 % (12-17); White Blood Count 10.8 10^3/uL (3.6-10.2)
[2024-10-13] MEDS: Pantoprazole 80 mg in NS BAG 80 MG/250 ML BAG IV SCH (02:05)
[2024-10-13] MEDS: Hydrocortisone INJ 100 MG/2ML 2 ML VIAL IV SCH (02:15)
[2024-10-13 02:23] LABS: Albumin/Globulin Ratio 1.3 (1-3); Calcium 7.4 mg/dL (8.6-10.3); Creatinine, Serum 0.82 mg/dL (0.67-1.17); Globulin 2.3 g/dL (2-4); Magnesium 1.5 mg/dL (1.9-2.7); Phosphorus 1.5 mg/dL (2.5-5.0); Total Bilirubin 4.6 mg/dL (0.2-1.0); Total Protein 5.3 g/dL (6.4-8.9); eGFR CKD-EPI 120.4 (>60)
[2024-10-13] MEDS: CALCIUM GLUCONATE 1GM/50ML NS 1 GM/50 ML BAG IV SCH (02:41)
[2024-10-13 03:11] VITALS: BP 90/52
[2024-10-13] MEDS: Sodium Phosphate IV 15 MMOL in NS 0.9% 250 ml 250 ML IV ONE (04:30)
[2024-10-13 05:14] LABS: Urine Appearance Clear; Urine Bilirubin Negative (Negative); Urine Blood Negative (Negative); Urine Color Yellow; Urine Glucose 4+ (>=1000 mg/dL) (Negative); Urine Ketones 1+ (Negative); Urine Nitrite Negative (Negative); Urine Protein Trace (Negative); Urine Specific Gravity 1.037 (1.002-1.030); Urine Urobilinogen Negative (Negative); Urine pH 5.5 (5.0-8.0)
[2024-10-13 05:16] LABS: Urine Bacteria 1+ /HPF (Absent); Urine Red Blood Cell Trace(0-2/hpf) /HPF (0-Trace); Urine White Blood Cell Trace(0-5/hpf) /HPF (0-Trace)
[2024-10-13 05:24] LABS: ABS Lymphocytes 0.6 10^3/uL (1.0-4.8); ABS Monocytes 0.6 10^3/uL (0.0-1.1); ABS Neutrophils 7.1 10^3/uL (1.5-7.6); ABS Nucleated RBC 0.02 10^3/ul; Eosinophil % 0.3 %; Hematocrit 28.9 % (38-53); Hemoglobin 10.1 g/dL (13.2-16.3); Lymphocyte % 7.1 %; Mean Corpuscular Hemoglobin 29.3 pg (27-33); Mean Corpuscular Hgb Conc 35.1 g/dL (31-36); Mean Corpuscular Volume 83.5 fL (80-97); Mean Platelet Volume 8.9 fL (7.5-11.2); Nucleated Red Blood Cells % 0.3 %/100WBC (0.0-0.8); Platelet Count 47 10^3/uL (150-450); Red Blood Count 3.45 10^6/uL (4.06-5.63); Red Cell Distribution Width 15.8 % (12-17); White Blood Count 8.4 10^3/uL (3.6-10.2)
[2024-10-13] MEDS: Levothyroxine 100 MCG/5 ML VIAL IV SCH (06:00)
[2024-10-13 06:05] LABS: Albumin 2.7 g/dL (3.5-5.7); Albumin/Globulin Ratio 1.2 (1-3); Creatinine, Serum 0.78 mg/dL (0.67-1.17); Globulin 2.2 g/dL (2-4); Magnesium 2.8 mg/dL (1.9-2.7); Potassium 4.2 mmol/L (3.5-5.0); Total Bilirubin 3.3 mg/dL (0.2-1.0); Total Protein 4.9 g/dL (6.4-8.9); eGFR CKD-EPI 122.3 (>60)
[2024-10-13 09:07] LABS: PCO2 Arterial 35 mmHg (35-45); PO2 Arterial 182 mmHg (80-100)
== END 2024-10-13 10:15 | disposition short-term general hospital (02) ==
LOC: ED 06:33 → EDHOLD 10:38 → ICU 11:20
PROVIDERS: ADMIT Internal Medicine Pulmonary Disease; ATTEND Internal Medicine Pulmonary Disease